=== PATIENT | female | born 1970 | race Caucasian/White ===

== ENCOUNTER 2020-12-16 12:47 | Emergency (ER) | payer OTHER, SELFPAY ==
[2020-12-16 12:54] VITALS: BP 176/90; PULSE 81; RESP 18; TEMP 36.1; O2SAT 100
--- NOTE | 2020-12-16 13:09 | ED.URI ---
HPI - URI/Sore Throat General Chief Complaint: Upper Respiratory Infection Stated Complaint: cough/congestion/sore throat/chest tightness Time Seen by Provider: 12/16/20 13:10 Source: patient, RN notes reviewed and old records reviewed Mode of arrival: ambulatory Limitations: no limitations History of Present Illness HPI Narrative: 50-year-old female presents to [facility] with complaints of sore throat since Tuesday evening. Patient reports that she started with cough, wheezing,nasal congestion and drainage which started at about 0200. Patient reports that she has some chest tightness with her cough, denies any palpitations, pressure or any acute dyspnea.Patient states that she had been on antibiotic of amoxicillin for dental extractions which she had 2 weeks ago. Patient has not had COVID vaccinations. Patient reports that she does not know of any fevers but has had chills MD elicited complaint: cough, sore throat, rhinorrhea and nasal congestion Related Data Allergies Allergy/AdvReac Type Severity Reaction Status Date / Time codeine Allergy Unknown Verified 12/16/20 12:58 Review of Systems Review of Systems: CONSTITUTIONAL: Denies fever, positive for chills, or sweats. EYES: Denies visual changes, redness, or discharge. ENT: Positive for rhinorrhea, congestion, sore throat, no otalgia. CARDIOVASCULAR: Denies chest pain, palpitations, or edema, reports tightness to chest with cough RESPIRATORY: Positive cough denies dyspnea. GASTROINTESTINAL: Denies abdominal pain, nausea, vomiting, or diarrhea. GENITOURINARY: Denies dysuria or hematuria. SKIN: Denies rash or itching. MUSCULOSKELETAL: Denies back pain, joint pain, or myalgia. NEUROLOGIC: Denies headache, numbness, or weakness. PSYCHIATRIC: Denies anxiety or depression. All systems reviewed & are unremarkable except as noted in HPI and below PMFSH Past Medical History Medical History (Updated 12/18/20 @ 11:29 by Bety Neely NP) Asthma GERD (gastroesophageal reflux disease) Surgical History Surgical History (Updated 12/16/20 @ 13:45 by Bety Neely NP) H/O gastric sleeve History of hysterectomy Hx of cholecystectomy S/P panniculectomy Family History Family History (Updated 12/18/20 @ 11:26 by Bety Neely NP) Other No significant family history Social History Social History (Updated 12/18/20 @ 11:26 by Bety Neely NP) Smoking status: Never smoker Alcohol intake: never Substance use: never Gender identity (if verbalized by the patient): Female Comments At time of signature, agree with nursing past medical, surgical, social and family history. There is no relevant family history pertinent to the presenting complaint Exam Narrative: GENERAL: Well-appearing, well-nourished, and in no acute distress. HEAD: Normocephalic, atraumatic. EYES: PERRLA and EOMI. ENT: Nares red with clear nasal rhinorrhea no epistaxis. Mucous membranes moist.TM normal with good light reflex. throat red swollen with no exudates or lesions or tonsil enlargement. NECK: Supple. no lymphadenopathy CHEST: Decreased with some scattered wheezes on auscultation. No respiratory distress,cough SAO2 100% on room air HEART: Regular rate and rhythm. No murmur heard. Normal peripheral pulses. ABDOMEN: Soft, nontender, nondistended, normal active bowel sounds. EXTREMITIES: Normal range of motion. No edema. SKIN: Warm, dry, no rash. NEURO: No focal deficits. Alert and oriented x3. Course Vital Signs Vital signs: Vital Signs Temperature 36.1 C L 12/16/20 12:54 Pulse Rate 81 12/16/20 12:54 Respiratory Rate 18 12/16/20 12:54 Blood Pressure 176/90 H 12/16/20 12:54 Pulse Oximetry 100 12/16/20 12:54 Temperature 36.1 C L 12/16/20 12:54 Pulse Rate 81 12/16/20 12:54 Respiratory Rate 18 12/16/20 12:54 Blood Pressure 176/90 H 12/16/20 12:54 Pulse Oximetry 100 12/16/20 12:54 MDM - URI/Sore Throat Differential Diagnosis Differenti
[2020-12-17 18:05] LABS: SARS-CoV-2 RNA PCR Negative
== END 2020-12-16 14:13 | disposition home or self-care (01) ==
PROVIDERS: Emergency Provider Registered Nurse
DX: J40 Bronchitis, not specified as acute or chronic (principal); Z20.822 Contact with and (suspected) exposure to COVID-19; J45.909 Unspecified asthma, uncomplicated; K21.9 Gastro-esophageal reflux disease without esophagitis; Z98.84 Bariatric surgery status
CPT/HCPCS: 87081; 87880; 99213; C9803; G0463; U0003; U0005

== ENCOUNTER 2022-05-13 09:17 | Emergency (ER) | payer OTHER, SELFPAY ==
[2022-05-13] VITALS (26 sets, daily range): BP systolic 132–180; BP diastolic 70–103; PULSE 73–91; RESP 9–21; TEMP 36.9; O2SAT 97–100
--- NOTE | ~2022-05-13 | XR_ITS ---
EXAMINATION: XR chest 2V 05/13/2022 10:14 INDICATION: Chest pressure. History of asthma. PROCEDURE: 2 view chest COMPARISON: No prior studies for comparison. FINDINGS: The lungs are clear. The cardiomediastinal silhouette is within normal limits. There are no pleural effusions. There is no pneumothorax suspected. IMPRESSION: 1: NO ACUTE CARDIOPULMONARY DISEASE. Reviewed, dictated and finalized at location [facility]. 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
--- NOTE | 2022-05-13 09:43 | ECG_ITS ---
Measurements Intervals [facility] [place] Rate: 85 P: 50 MA: 156 QRS: 5 QRSD: 86 T: 30 QT: 367 QTc: 437 Interpretive Statements SINUS RHYTHM LOW QRS VOLTAGE IN PRECORDIAL LEADS BASELINE ARTIFACT- I, II, III, AVR, AVL, AVF, 1-V6 BORDERLINE ECG NO PREVIOUS ECG AVAILABLE FOR COMPARISON Electronically Signed On 05-13-2022 9:48:20 CLINICAL NURSE LEADER by Luis Soares D.O.
[2022-05-13 09:59] LABS: Basophils Percent Auto 0.4 % (0.2-1.2); Eosinophils Absolute Auto 0.1 K/mm3 (0-0.3); Eosinophils Percent Auto 0.6 % (0-4.4); Hematocrit 42.5 % (37.0-47.0); Hemoglobin 13.8 g/dL (12.0-15.0); Immature Granulocyte Absolute 0.04 K/mm3 (0.00-0.031); Immature Granulocyte Percent A 0.4 % (0-0.5); Lymphocytes Absolute Auto 1.79 K/mm3 (0.9-3.2); Lymphocytes Percent Auto 16.2 % (18.3-44.2); Mean Corpuscular HGB Conc 32.5 g/dl (32-36); Mean Corpuscular Hemoglobin 28.7 pg (26-34); Mean Corpuscular Volume 88.4 fl (80-100); Mean Platelet Volume 9.1 fl (7.4-10.4); Monocytes Absolute Auto 0.6 K/mm3 (0.1-0.6); Monocytes Percent Auto 5.7 % (2.6-8.5); Neutrophils Absolute Auto 8.5 K/mm3 (1.3-6.7); Neutrophils Percent Auto 76.7 % (45.5-73.1); Platelet Count Result 339 k/mm3 (150-375); Red Blood Count 4.81 M/mm3 (4.2-5.4); Red Cell Distribution Width 13.2 % (11.5-14.5)
--- NOTE | 2022-05-13 10:14 | ED.GENADULT ---
HPI - General Adult General Chief complaint: Chest Pain Stated complaint: Chest pain Time Seen by Provider: 05/13/22 09:35 History of Present Illness HPI narrative: 51-year-old female patient in the emergency department for evaluation of chest tightness and chest pressure that started at 3 AM. Patient states that the chest pain has sometimes radiate to her back. Patient reports the pain has been constant since 3 AM. Patient denies any associated nausea vomiting or diaphoresis. Patient denies associated shortness of breath with this. Patient has a history of asthma and GERD. Patient denies any prior cardiac history. Related Data Home Medications Medication Instructions Recorded Confirmed No Home Medications 03/29/22 03/29/22 Allergies Allergy/AdvReac Type Severity Reaction Status Date / Time codeine Allergy Unknown Verified 05/13/22 11:05 Review of Systems Review of Systems: CONSTITUTIONAL: Denies fever, chills, or sweats. EYES: Denies visual changes, redness, or discharge. ENT: Denies rhinorrhea, congestion, sore throat, or otalgia. CARDIOVASCULAR: See HPI RESPIRATORY: Denies cough or dyspnea. GASTROINTESTINAL: Denies abdominal pain, nausea, vomiting, or diarrhea. GENITOURINARY: Denies dysuria or hematuria. SKIN: Denies rash or itching. MUSCULOSKELETAL: Denies back pain, joint pain, or myalgia. NEUROLOGIC: Denies headache, numbness, or weakness. PMFSH Past Medical History Medical History Asthma GERD (gastroesophageal reflux disease) Surgical History Surgical History H/O gastric sleeve History of hysterectomy Hx of cholecystectomy S/P panniculectomy Family History Family History Other No significant family history Social History Social History Smoking status: Never smoker Alcohol intake: never Substance use: never Gender identity (if verbalized by the patient): Female Exam Narrative: APPEARANCE: Well appearing, no pain, no distress, well-nourished. HEAD: normocephalic, atraumatic. EYES: PERRLA/EOMI, conjunctivae clear. NOSE: Normal no drainage NECK: Supple. No adenopathy, no masses. RESPIRATORY: Airway patent, respirations nonlabored. Clear to auscultation bilaterally, no rales, rhonchi, wheezing. CARDIOVASCULAR: Regular rate and rhythm without murmurs rubs or gallops. Reproducible chest wall tenderness to palpation. ABDOMINAL: Soft, nontender, nondistended, normal bowel sounds MUSCULOSKELETAL: Moves all extremities. Strength/ROM intact, No edema, No calf tenderness. NEURO: Alert. Cranial nerves II through XII intact. Grossly intact SKIN: Warm, dry. Normal Color Course Course Emergency Course: 51-year-old female presenting to the ED for reproducible chest wall pain. Patient was hypertensive on arrival but with no medications patient's blood pressure did trend down. 2:05 PM patient reports she does feel improved. Patient is afebrile but does have a minor leukocytosis. Patient's CMP was similar to her baseline. Patient had negative serial troponins. Chest x-ray showed no acute cardiopulmonary abnormality. Patient's EKG showed normal sinus rhythm with no evidence of acute STEMI. Patient was updated the results of her work-up. Patient was encouraged of close follow-up with her primary care physician and was advised that she may need additional outpatient cardiac testing but she may also need GI follow-up due to her epigastric tenderness. All questions concerns were addressed and patient was comfortable with the plan for discharge and close follow-up. Vital Signs Vital signs: Vital Signs Temperature 98.5 F 05/13/22 09:23 Pulse Rate 85 05/13/22 09:23 Respiratory Rate 20 05/13/22 09:23 Blood Pressure 180/103 H 05/13/22 09:23 Pulse Oximetry 99 05/13/22 09:23 Temperatu
[2022-05-13 10:17] LABS: Prothrombin Time 12.4 Seconds (11.1-14.7)
[2022-05-13 10:18] LABS: Partial Thromboplastin Time 28.2 SECONDS (22.3-36.8)
[2022-05-13 10:20] LABS: Alanine Aminotransferase 36 U/L (6-35); Albumin Level 4.5 g/dL (3.5-5.1); Alkaline Phosphatase 110 U/L (38-126); Anion Gap 7 mmol/L (8-16); Aspartate Amino Transferase 36 U/L (14-36); Bilirubin,Total 0.6 mg/dL (0.2-1.3); Blood Urea Nitrogen 9 mg/dL (7-17); Calcium 9.4 mg/dL (8.4-10.2); Carbon Dioxide 29 mmol/L (22-30); Chloride 105 mmol/L (98-107); Estimated CRCL calculation 134 ml/min; Estimated Glomerular Filt Rate > 60; Glucose 144 mg/dL (65-110); Lipase 228 U/L (23-300); Potassium 4.6 mmol/L (3.4-5.0); Sodium 141 mmol/L (137-145)
[2022-05-13 10:31] LABS: Troponin I < 0.012 ng/mL (0.000-0.034)
[2022-05-13] MEDS: ASPIRIN 81 MG CHEWABLE TABLET 324 MG PO (10:37)
--- NOTE | 2022-05-13 11:25 | PC.NURSE ---
Patient report received from Cat, RN. All questions answered and care of patient assumed.
[2022-05-13 13:24] LABS: Troponin I 0.016 ng/mL (0.000-0.034)
== END 2022-05-13 14:29 | disposition home or self-care (01) ==
PROVIDERS: Emergency Provider Emergency Medicine; PCP Family Medicine
DX: R07.89 Other chest pain (principal); R10.13 Epigastric pain; Z98.84 Bariatric surgery status
CPT/HCPCS: 36415; 71046; 80053; 83690; 84484; 85025; 85610; 85730; 93005; 99284; A9270

== ENCOUNTER 2022-08-24 12:10 | Outpatient (CLI) | payer OTHER, SELFPAY ==
--- NOTE | ~2022-08-24 | XR_ITS ---
EXAMINATION: XR chest 2V 08/24/2022 13:12 INDICATION: Persistent cough PROCEDURE: 2 view chest COMPARISON: 05/13/2022 FINDINGS: The lungs are clear. The cardiomediastinal silhouette is within normal limits. There are no pleural effusions. There is no pneumothorax suspected. IMPRESSION: 1: NO ACUTE CARDIOPULMONARY DISEASE. Reviewed, dictated and finalized at location [facility].
== END 2022-08-24 12:11 | disposition home or self-care (01) ==
LOC: ANHIMG 12:14
PROVIDERS: PCP Internal Medicine; Visit Provider Internal Medicine
DX: R05.9 Cough, unspecified (principal)
CPT/HCPCS: 71046

== ENCOUNTER 2023-03-19 11:06 | Emergency (ER) | payer OTHER, SELFPAY ==
--- NOTE | ~2023-03-19 | CT_ITS ---
EXAMINATION: CT abdomen pelvis wo/w con DATE: 03/19/2023 12:50 INDICATION: Right lower quadrant abdominal pain, radiating to the back. Vomiting. TECHNIQUE: Computed tomography (CT) of the abdomen and pelvis was performed without intravenous contr ast. Automated exposure control and iterative reconstruction technique were employed. Exam dose: 293 7.10 mGy-cm total exam DLP. COMPARISON: None. FINDINGS: The lung bases are clear of infiltrate or consolidation. Mild cardiomegaly. No pericardial or pleural effusion. Status post cholecystectomy. No hepatic, splenic, pancreatic, and adrenal or renal space-occupying ma ss lesion there is an approximately 2.8 x 5 mm distal right ureteral calculus with mild right hydrour eteronephrosis. No other urinary tract calculus or left hydroureteronephrosis is detected. The urinary bladder is unr emarkable. Status post hysterectomy. Normal caliber of the abdominal aorta. No intraperitoneal or retroperitoneal or pelvic mass lesion or adenopathy or ascites. Tenderness gastric sleeve surgery. The appendix is not identified. No inflammatory changes noted in t he right lower quadrant. No bowel obstruction, bowel wall thickening, pneumatosis or intraperitoneal free air is detected. Surgical clips along the anterior lower abdominal and pelvic caicedo. Diffuse idiopathic skeletal hyperostosis of the thoracic spine. Mild degenerative spurring of the lum bar spine. There is bilateral hip osteoid arthritis. No suspicious osteolytic or osteoblastic lesions . IMPRESSION: Approximately 2.5 mm distal right ureteral calculus with mild right hydroureteronephrosi s Mild cardiomegaly Status post cholecystectomy Status post gastric sleeve Status post hysterectomy Reviewed, dictated and finalized at [facility]. Reviewed, dictated and finalized at location [facility]. 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
[2023-03-19 11:23] VITALS: BP 183/85; PULSE 77; RESP 16; TEMP 36.7; O2SAT 100
[2023-03-19 11:35] LABS: Basophils Percent Auto 0.4 % (0.2-1.2); Eosinophils Absolute Auto 0.1 K/mm3 (0-0.3); Eosinophils Percent Auto 0.8 % (0-4.4); Hematocrit 42.6 % (37.0-47.0); Hemoglobin 13.4 g/dL (12.0-15.0); Immature Granulocyte Absolute 0.07 K/mm3 (0.00-0.031); Immature Granulocyte Percent A 0.7 % (0-0.5); Lymphocytes Absolute Auto 1.64 K/mm3 (0.9-3.2); Mean Corpuscular HGB Conc 31.5 g/dl (32-36); Mean Corpuscular Volume 89.1 fl (80-100); Monocytes Absolute Auto 0.5 K/mm3 (0.1-0.6); Monocytes Percent Auto 4.7 % (2.6-8.5); Neutrophils Absolute Auto 7.9 K/mm3 (1.3-6.7); Neutrophils Percent Auto 77.4 % (45.5-73.1); Platelet Count Result 315 k/mm3 (150-375); Red Blood Count 4.78 M/mm3 (4.2-5.4); Red Cell Distribution Width 13.2 % (11.5-14.5); White Blood Count 10.2 K/mm3 (4.5-10.0)
[2023-03-19 11:44] LABS: Alanine Aminotransferase 35 U/L (6-35); Albumin Level 3.9 g/dL (3.5-5.1); Alkaline Phosphatase 108 U/L (38-126); Anion Gap 9 mmol/L (8-16); Aspartate Amino Transferase 40 U/L (14-36); Bilirubin,Total 0.5 mg/dL (0.2-1.3); Blood Urea Nitrogen 10 mg/dL (7-17); Calcium 9.1 mg/dL (8.4-10.2); Carbon Dioxide 28 mmol/L (22-30); Chloride 105 mmol/L (98-107); Estimated CRCL calculation 113 ml/min; Estimated Glomerular Filt Rate > 60; Glucose 145 mg/dL (65-110); Lipase 227 U/L (23-300); Potassium 4.1 mmol/L (3.4-5.0); Sodium 142 mmol/L (137-145)
[2023-03-19 11:49] LABS: Appearance Urine Cloudy (Clear); Bacteria Urine None Seen /hpf; Bilirubin Urine Negative (Negative); Blood Urine 3+ (Negative); Color Urine Yellow (Yellow); Glucose Urine UA Negative (Negative); Ketones Urine Negative (Negative); Leukocyte Esterase Ur Negative LEU/UL (Negative); Nitrate Urine Negative (Negative); Non Pathogenic Casts 0-2; Protein Urine 1+ mg/dL (Negative); RBC Urine 51-100 /hpf (0-2); Specific Grav Ur 1.022 (1.001-1.035); Squamous Epithelial Cell Urine Few /hpf (Few); Urobilinogen Urine 0.2 mg/dL (<2.0); WBC Urine 0-5 /hpf
[2023-03-19 11:50] LABS: Add Urine Microscopic? YES
--- NOTE | 2023-03-19 12:03 | ED.ABDPAIN ---
HPI - Abdominal Pain General Chief Complaint: Abdominal Pain Stated Complaint: abd pain Time Seen by Provider: 03/19/23 12:02 Source: patient Mode of arrival: ambulatory Limitations: no limitations History of Present Illness HPI narrative: this is a 52-year-old female presents with acute onset right lower quadrant abdominal pain that awoke her from sleep at 4:00 a.m.. She states it radiates towards her back. She has only experienced pain similarly when she had pancreatitis secondary to gallstones. She is status post cholecystectomy as well as a hysterectomy which there was removal of the uterus /cervix /salpingectomy but with the ovaries remaining. She is also having nausea as well as emesis she describes as nonbloody but questionably bilious. No diarrhea. She did present initially to urgent care and was given Zofran but continues to vomit despite this. Last oral intake was last night. She has no appetite. She denies any gross hematuria, dysuria, urinary urgency or frequency. While at the Urgent Care, she was also tested for COVID and flu and was negative for both by report. denies vaginal bleeding or discharge. Related Data Allergies Allergy/AdvReac Type Severity Reaction Status Date / Time codeine Allergy Unknown Verified 05/13/22 11:05 [facility] Past Medical History Medical History (Updated 03/19/23 @ 13:35 by Gayle Villa MD) Asthma GERD (gastroesophageal reflux disease) Surgical History Surgical History (Updated 03/19/23 @ 12:16 by Gayle Villa MD) H/O gastric sleeve History of hysterectomy with removal of cervix, uterus, and bilateral salpingectomy (ovaries remain) Hx of cholecystectomy S/P panniculectomy Family History Family History Other No significant family history Social History Social History Smoking status: Never smoker Alcohol intake: never Substance use: never Gender identity (if verbalized by the patient): Female Exam Narrative: GENERAL: Well-appearing, well-nourished, appears uncomfortable. HEAD: Normocephalic, atraumatic. EYES: Non injected, non icteric ENT: Nares clear, no rhinorrhea or epistaxis. NECK: Supple. CHEST: Equal chest rise and fall. No respiratory distress. Speaks in complete sentences. HEART: Regular rate and rhythm. ABDOMEN: Obese, Soft, nondistended. mild tenderness to palpation in the left lower quadrant. Also has significant tenderness to palpation of the right lower quadrant. : Right CVA tenderness. Left CVA without tenderness EXTREMITIES: Normal range of motion. No edema. SKIN: Warm, dry, no rash. NEURO: No focal deficits. Alert and oriented x3. PSYCH: Normal mood and affect. Course Vital Signs Vital signs: Vital Signs Temperature 98.0 F 03/19/23 11:23 Pulse Rate 77 03/19/23 11:23 Respiratory Rate 16 03/19/23 11:23 Blood Pressure 183/85 H 03/19/23 11:23 Pulse Oximetry 100 03/19/23 11:23 Oxygen Delivery Room Air 03/19/23 11:23 Temperature 98.0 F 03/19/23 11:23 Pulse Rate 77 03/19/23 11:23 Respiratory Rate 16 03/19/23 11:23 Blood Pressure 183/85 H 03/19/23 11:23 Pulse Oximetry 100 03/19/23 11:23 Oxygen Delivery Room Air 03/19/23 11:23 MDM - Abdominal Pain MDM Narrative Medical decision making narrative: Patient presents with acute onset right lower quadrant abdominal starting at 4:00 a.m. and radiating to the back. It is associated with nausea and emesis. patient does have tenderness to palpation in this area. The emergency department vital signs are notable for hypertension. Patient has only a slight leukocytosis at 10.2. She also has mild hyperglycemia without anion gap or acidosis and an isolated elevation in AST. She is status post Zofran at the urgent care center but continues to have emesis so will be given Compazine and IV fluids as well as ketorolac for
[2023-03-19 12:15] VITALS: BP 153/78; PULSE 80; RESP 18; TEMP 36.6; O2SAT 98
[2023-03-19] MEDS: PROCHLORPERAZINE EDISYLATE 10 MG/2 ML VIAL IV PUSH (12:17)
[2023-03-19] MEDS: KETOROLAC 15 MG/ML VIAL (*BKC) IV PUSH (12:17)
[2023-03-19] MEDS: SODIUM CHLORIDE 0.9% IV 1,000 ML 999 ML IV CONT (12:17)
[2023-03-19 13:16] VITALS: BP 126/60; PULSE 89; RESP 14; TEMP 36.8; O2SAT 100
[2023-03-19] MEDS: TAMSULOSIN HCL 0.4 MG CAPSULE PO (13:18)
[2023-03-19 13:45] VITALS: BP 124/64; PULSE 83; RESP 18; TEMP 36.7; O2SAT 100
== END 2023-03-19 13:58 | disposition home or self-care (01) ==
PROVIDERS: Emergency Medicine; Emergency Provider Student in an Organized Health Care Education/Training Program; PCP Internal Medicine
DX: N13.2 Hydronephrosis with renal and ureteral calculous obstruction (principal); D72.828 Other elevated white blood cell count; R73.9 Hyperglycemia, unspecified; R31.29 Other microscopic hematuria; R74.01 Elevation of levels of liver transaminase levels; J45.909 Unspecified asthma, uncomplicated; K21.9 Gastro-esophageal reflux disease without esophagitis; Z90.49 Acquired absence of other specified parts of digestive tract; Z90.710 Acquired absence of both cervix and uterus; Z98.84 Bariatric surgery status; Z90.79 Acquired absence of other genital organ(s)
CPT/HCPCS: 36415; 74178; 80053; 81001; 83690; 85025; 96361; 96374; 96375; 99284; A9270; J0780; J1885; J7030; Q9967